=== PATIENT | female | born 1955 | race Caucasian/White ===

== ENCOUNTER 2018-11-08 17:17 | Emergency (ER) | payer BC ==
[~2018-11-08] VITALS: Ht 152.4 cm; Wt 93.0 kg
[~2018-11-08 17:17] MED LIST: ADULT LOW DOSE81 MG PO; BP MED; CALCIUM +D & M1 EACH PO; FIBER0.52 G1 PO; FISHOIL; LISINOPRIL2.5 MG PO; MULTIPLE VITAM1 EAC1 PO; NAPROSYN500 M1 PO; NUMOISYN300 ML MM; OMEPRAZOLE20 M1 PO; PROBIOTIC1 EAC1 PO; VISTARIL PO; ZOCOR20 MG PO; [UNRECOGNIZED DRUG - REMARK]
[2018-11-08 17:54] LABS: ABSOLUTE EOSINOPHILS 0.2 thou/uL (0.0-0.7); NUCLEATED RBCS 0 /100WBC
[2018-11-08 17:55] LABS: ABSOLUTE BASOPHILS 0.1 thou/uL (0.0-0.2); ABSOLUTE LYMPHOCYTES 2.7 thou/uL (0.8-5.3); ABSOLUTE MONOCYTES 0.7 thou/uL (0.0-1.2); ABSOLUTE NEUTROPHILS 5.7 thou/uL (1.6-8.1); BASOPHILS 1.1 %; HEMATOCRIT 41.3 % (37.0-47.0); HEMOGLOBIN 13.6 gm/dL (12.0-15.0); LYMPHOCYTES 28.5 %; MCH 29.1 pg (26.0-34.0); MONOCYTES 7.6 %; MPV 8.5 fl. (7.2-11.1); PLATELET COUNT* 266 thou/uL (150-400); POLYS 60.8 %; RBC 4.69 mil/uL (4.20-5.00); RDW-CV 13.2 % (10.5-14.5); WBC 9.3 thou/uL (4.0-11.0)
[2018-11-08 18:09] LABS: ANION GAP 6 mmol/L (7-16); BUN 24 mg/dL (7-18); CALCIUM 9.5 mg/dL (8.5-10.1); CHLORIDE 104 mmol/L (98-107); CO2 30 mmol/L (21-32); GLUCOSE 94 mg/dL (70-99); POTASSIUM 4.7 mmol/L (3.5-5.1); SODIUM 140 mmol/L (136-145); TROPONIN-I LEVEL <0.06 ng/mL (<0.06)
[2018-11-08 18:21] LABS: ALBUMIN 3.3 g/dL (3.4-5.0); ALKALINE PHOSPHATASE 113 U/L (46-116); CK-MB MASS 1.3 ng/mL (<0.5-3.6); LIPASE 137 U/L (73-393); MAGNESIUM 1.8 mg/dL (1.8-2.4); NT-PRO BRAIN NAT PEPTIDE 39 pg/mL (<300); SGOT 27 U/L (15-37); SGPT 37 U/L (30-65); TOTAL BILIRUBIN 0.3 mg/dL (<0.1-1.0); TOTAL PROTEIN 7.1 g/dL (6.4-8.2)
[2018-11-08 18:22] LABS: APTT 27.9 Seconds (25.0-31.3); PROTIME 10.3 Seconds (9.20-11.50)
[2018-11-08 18:41] VITALS: BP 109/73
--- NOTE | 2018-11-09 15:04 | EKG ---
[place] [address] ELECTROCARDIOGRAM REPORT Name: ERASMO COKERCY Marty Room: [facility]#: [id number] Admission: 11/08/18 Attend Phys: Discharge: 11/08/18 Date of : 59 Report #: [id number] THIS REPORT FOR: //name// [facility] ED Test Date: 2018-11-08 Test Time: 17:23:47 Pat Name: CHERELLE COKER Department: Room: Gender: F Director Of Rehabilitation And Wellness: JOSE : 1955 Requested By: Fantasma Maldonado Order Number: [id number] MD: Ray Saucedo Measurements Intervals [place] Rate: 73 P: 42 KS: 149 QRS: 21 QRSD: 92 T: 20 QT: 363 QTc: 400 Interpretive Statements Sinus rhythm Low voltage, precordial leads Compared to ECG 11/21/2016 19:29:02 Low QRS voltage now present Electronically Signed On 11-09-2018 15:04:29 CDT by Ray Saucedo [email or web address] <ELECTRONICALLY SIGNED> By: Ray Saucedo MD, [facility] 11/09/18 1504 [id number] 22 Ray Saucedo MD, FACC /EPI
== END 2018-11-08 18:42 | disposition home or self-care (01) ==
LOC: M.ERS 17:17
PROVIDERS: Family Medicine
DX: R07.89 Other chest pain (principal); I10 Essential (primary) hypertension; Z90.710 Acquired absence of both cervix and uterus; Z87.442 Personal history of urinary calculi; Z98.890 Other specified postprocedural states; Z91.041 Radiographic dye allergy status

== ENCOUNTER → 2020-01-21 | Outpatient (CLI) | payer BC | LOC: M.LAB 08:19 | PROVIDERS: ATTEND Internal Medicine Gastroenterology | DX: Z01.812 Encounter for preprocedural laboratory examination (principal); Z12.11 Encounter for screening for malignant neoplasm of colon ==